=== PATIENT | female | born 1990 | race Caucasian/White ===

== ENCOUNTER 2017-08-28 01:38 | Observation (INO) ==
[2017-08-28] MEDS ORDERED: *HR* HYDROmorphone (PF) 1 MG/ML SYRINGE IVP ONE ×2 (01:47→02:19)
[2017-08-28] MEDS ORDERED: 0.9 % Sodium Chloride 1,000 ML IVC ONE ×2 (01:47→02:23)
[2017-08-28] MEDS ORDERED: Ondansetron 4 MG/2 ML VIAL IVP ONE (01:47)
--- NOTE | 2017-08-28 02:01 | Emergency Department Note ---
Disposition Clinical Impression: Intractable abdominal pain, Vomiting, Leukocytosis Disposition: Admitted As Inpatient Condition: Good Referrals: Lio Moss MD [Primary Care Provider] - Forms: ED Satisfaction Letter, Work/School Release Time of Disposition: 02:59 Abdominal Pain HPI - General Chief Complaint: ED Abdominal Pain Stated Complaint: was here yesterday vomiting abdominal pain Time Seen by Provider: 08/28/17 01:46 Source: patient Mode of arrival: ambulatory Limitations: no limitations Nursing Notes Reviewed: Yes Vital Signs Reviewed: Yes - History of Present Illness HPI Narrative: Patient presenting again to the emergency department with abdominal pain. This is the patient's second visit to the emergency department today. This patient was received in sign out at the beginning of my shift and was subsequently discharged after consultation with surgery. Patient is presenting again for worsening abdominal pain and vomiting. She states that she went home and tried to drink the GoLYTELY got about half of it down and tried to use the bathroom and then began vomiting all of the fluid back up. She is still not had a bowel movement and is complaining of worsening cramping in her stomach. Previous imaging was normal including a CT of abdomen and pelvis and transvaginal ultrasound. Patient reports that she is continuing to worse. There has been no fever or pain in her chest, trouble breathing or rash. We will admit to the hospitalist service after consultation surgery. Pain Scale: 10 - Related Data Home Medications Medication Instructions Recorded Confirmed Benzonatate [Tessalon] 100 mg PO TID PRN 08/27/17 08/27/17 Cyclobenzaprine [Flexeril] 10 mg PO TID PRN 08/27/17 08/27/17 Ibuprofen [Motrin] 800 mg PO Q8HR PRN 08/27/17 08/27/17 Naproxen [Naprosyn] 500 mg PO BID PRN 08/27/17 08/27/17 Ondansetron ODT [Zofran ODT] 4 mg SL Q6HR PRN 08/27/17 08/27/17 OxyCODONE Immed Rel [Roxicodone 5 5 mg PO Q8HR PRN 08/27/17 08/27/17 MG] Previous Rx's Medication Instructions Recorded levoFLOXacin [Levaquin] 500 mg PO DAILY #10 tablet 08/21/17 HYDROcodone/Acet 5/325 mg [[place] 1 tab PO Q6H PRN 4 Days #16 tab 08/23/17 5-325 mg] Ondansetron ODT [Zofran ODT] 4 mg SL Q8HR PRN #12 tab.rapdis 08/27/17 Polyethylene Glycol 3350 [MiraLAX] 17 gm PO DAILY PRN #5 powd.pack 08/27/17 Allergies Allergy/AdvReac Type Severity Reaction Status Date / Time No Known Allergies Allergy Verified 08/28/17 01:44 All systems ED: reviewed and negative except as stated. Constitutional: Denies: fever Cardiovascular: Denies: chest pain Gastrointestinal: Reports: abdominal pain, nausea, vomiting. 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 [employer]ER history: Reports: bilateral tubal ligation Psychiatric history: Reports: no psych history - Social History Smoking status: Current every day smoker Alcohol use: Reports: none Drug use: Reports: none Physical Exam - General Limitations: no limitations General appearance: alert, in distress - Respiratory Respiratory exam: Present: normal lung sounds bilaterally - Cardiovascular Cardiovascular exam: Present: regular rate, normal rhythm, normal heart sounds - Abdominal Exam Abdominal exam: Present: tenderness, distention, guarding, hypoactive bowel sounds - Extremities Exam Extremities exam: Present: normal inspection, full ROM. Absent: tenderness, pedal edema - Psychiatric Psychiatric exam: Present: anxious - Skin Skin exam: Present: warm, dry, intact, normal color Course Course Narrative: Patient presenting again shortly after discharge for worsening abdominal pain. Patient is tearful with a distended and tender abdomen. We will consult surgery. After labs are back. - Consultations Consultation #1: I spoke with Dr. Aranda. States nothing should be changed from a surgical perspective, but did recommend giving an enema and the GoLYTELY did not work. Okay with admission hospitalist service for surgical consult. Time: 02:58 Vital Signs Temperature 98.1 F 08/28/17 01:40 Pulse Rate 137 08/28/17 01:40 Respiratory Rate 20 08/28/17 01:40 Blood Pressure 142/103 08/28/17 01:40 O2 Sat by Pulse Oximetry 96 08/28/17 01:40 Temperature 98.1 F 08/28/17 01:40 Pulse Rate 70 08/28/17 02:46 Respiratory Rate 16 08/28/17 02:46 Blood Pressure 138/95 08/28/17 02:46 O2 Sat by Pulse Oximetry 99 08/28/17 02:46 Oxygen Delivery Oxygen Delivery Room Air Abdominal Pain - Lab Data Result diagrams: 08/28/17 02:00 08/28/17 02:00 Lab Results 08/28/17 08/28/17 08/28/17 Range/Units 02:00 02:00 02:00 WBC 19.2 H (4.3-11.1) K/mcL RBC 5.52 H (3.82-4.97) M/mcL Hgb 14.9 (11.5-15.4) g/dL Hct 45.6 H (35.3-44.9) % MCV 82.6 L (83.0-100.0) fL MCH 27.0 L (28.0-33.3) pg MCHC 32.7 (31.6-35.5) g/dL RDW 15.8 H (11.5-14.5) % Plt Count 240 (140-400) K/mcL MPV 10.0 (9.4-12.4) fL Immature Gran % 0.6 (0-4) % Seg Neutrophils % 78.9 % Lymphocytes % 13.3 % Monocytes % 6.9 % Eosinophils % 0.1 % Basophils % 0.2 % Neutrophils # 15.2 H (1.6-8.9) K/mcL Lymphocytes # 2.6 (0.6-4.6) K/mcL Monocytes # 1.3 (0.0-1.3) K/mcL Eosinophils # 0.0 (0.0-0.6) K/mcL Basophils # 0.0 (0.0-0.2) K/mcL Sodium 138 (136-145) mEq/L Potassium 3.9 (3.5-4.5) mEq/L Chloride 104 (98-109) mEq/L Carbon Dioxide 23 (19-29) mEq/L BUN 16 (7-20) mg/dL Creatinine 0.83 (0.57-1.11) mg/dL Est GFR ( Amer) > 60 (> 60) Est GFR (Non-Af Amer) > 60 (> 60) BUN/Creatinine Ratio 19 (6-26) Glucose 92 (70-99) mg/dL Calculated Osmolality 287 (280-300) Lactic Acid (0.5-2.2) mmol/L Calcium 9.1 (8.6-10.8) mg/dL TSH 2.122 (0.350-4.840) mcIU/mL Specimen Rejected Hemolyzed 08/28/17 Range/Units 02:23 WBC (4.3-11.1) K/mcL RBC (3.82-4.97) M/mcL Hgb (11.5-15.4) g/dL Hct (35.3-44.9) % MCV (83.0-100.0) fL MCH (28.0-33.3) pg MCHC (31.6-35.5) g/dL RDW (11.5-14.5) % Plt Count (140-400) K/mcL MPV (9.4-12.4) fL Immature Gran % (0-4) % Seg Neutrophils % % Lymphocytes % % Monocytes % % Eosinophils % % Basophils % % Neutrophils # (1.6-8.9) K/mcL Lymphocytes # (0.6-4.6) K/mcL Monocytes # (0.0-1.3) K/mcL Eosinophils # (0.0-0.6) K/mcL Basophils # (0.0-0.2) K/mcL Sodium (136-145) mEq/L Potassium (3.5-4.5) mEq/L Chloride (98-109) mEq/L Carbon Dioxide (19-29) mEq/L BUN (7-20) mg/dL Creatinine (0.57-1.11) mg/dL Est GFR ( Amer) (> 60) Est GFR (Non-Af Amer) (> 60) BUN/Creatinine Ratio (6-26) Glucose (70-99) mg/dL Calculated Osmolality (280-300) Lactic Acid 0.8 (0.5-2.2) mmol/L Calcium (8.6-10.8) mg/dL TSH (0.350-4.840) mcIU/mL Specimen Rejected S.B.A.R. - S.B.A.R. Situation: Demographics, MOA Background: Presenting Complaint, Relevant PMH, Meds, & Allergies Assessment: Vital Signs, Course and respsone to treatment, Exam Concerns, Patient/Family Expectation, Pertinant Lab Results, Outstanding Labs Recommendation: Barrier(s) to disposition, Recommendation based on pending studies, treatments, or consults Lucy Report Given to: Dr. Ashish Ayala Repor Time: 02:59
[2017-08-28 02:08] LABS: Basophils % 0.2 %; Eosinophils % 0.1 %; Hematocrit 45.6 % (35.3-44.9); Hemoglobin 14.9 g/dL (11.5-15.4); Immature Granulocytes % 0.6 % (0-4); Lymphocytes # 2.6 K/mcL (0.6-4.6); Lymphocytes % 13.3 %; Mean Corpuscular HGB Conc 32.7 g/dL (31.6-35.5); Mean Corpuscular Volume 82.6 fL (83.0-100.0); Monocytes # 1.3 K/mcL (0.0-1.3); Monocytes % 6.9 %; Platelet Count 240 K/mcL (140-400); Red Blood Count 5.52 M/mcL (3.82-4.97); Red Cell Distribution Width 15.8 % (11.5-14.5); Segmented Neutrophils % 78.9 %
[2017-08-28 02:09] LABS: Neutrophils # 15.2 K/mcL (1.6-8.9)
--- NOTE | 2017-08-28 02:27 | Emergency Department Note ---
START Narrative - START START: I examined this patient and my medical decision-making was reviewed with the Resident Physician. I agree with the documented findings, disposition and treatment plan as described except to the extent set forth below. 27-year-old female presents emergency room with abdominal pain. Patient was just in the emergency room earlier in the evening. She was seen in the ER by Gen. surgery for concerns for a surgical abdomen. Dr. Aranda came into the ER to evaluate the patient and did not feel the patient had any surgical issue. Her CT scan was normal. Her lab work was essentially unremarkable. She returns [facility] for return of her abdominal pain and vomiting. She threw up once at home. This is in regards to getting mag citrate for possible constipation. Patient will need to be admitted for serial abdominal exams and repeat consultation with general surgery. Her white count is now 19,000. Earlier this evening it was 12,000. She denies any diarrhea. She also had a pelvic ultrasound done earlier in the evening that was unremarkable.
[2017-08-28 02:28] LABS: BUN/Creatinine Ratio 19 (6-26); Blood Urea Nitrogen 16 mg/dL (7-20); Calcium 9.1 mg/dL (8.6-10.8); Carbon Dioxide 23 mEq/L (19-29); Chloride 104 mEq/L (98-109); Glucose 92 mg/dL (70-99); Osmolality,Calculated 287 (280-300); Potassium 3.9 mEq/L (3.5-4.5); Sodium 138 mEq/L (136-145); eGFR For African Americans > 60 (> 60); eGFR For Non-African Americans > 60 (> 60)
[2017-08-28 02:52] LABS: Thyroid Stimulating Hormone 2.122 mcIU/mL (0.350-4.840)
[2017-08-28] MEDS ORDERED: Milk and Molasses Enema 200 ML RC ONE ×2 (02:58→12:22)
[2017-08-28] MEDS ORDERED: Bisacodyl 10 MG RECTAL SUPPOSITORY RC STA (03:13)
[2017-08-28 03:37] LABS: Amphetamine Screen,Urine Negative ng/mL (Cutoff=1000); Barbiturate Screen,Urine Negative ng/mL (Cutoff=200); Benzodiazepines Screen,Urine Negative ng/mL (Cutoff=200); Cannabinoid Screen,Urine Negative ng/mL (Cutoff = 50); Cocaine Screen,Urine Negative ng/mL (Cutoff= 300); Opiate Screen,Urine Negative ng/mL (Cutoff=300); Phencyclidine Screen,Urine Negative ng/mL (Cutoff=25)
[2017-08-28] MEDS ORDERED: Naloxone 0.4 MG/ML INJ IVP PRN (05:15)
[2017-08-28] MEDS ORDERED: Ondansetron 4 MG/2 ML VIAL IVP PRN (05:15)
[2017-08-28] MEDS ORDERED: *HR* HYDROmorphone (PF) 1 MG/ML SYRINGE IVP PRN (05:15)
[2017-08-28] MEDS ORDERED: Acetaminophen 325 MG TABLET PO PRN (05:15)
--- NOTE | 2017-08-28 05:27 | Internal Med History&Physical ---
Date of Encounter: 08/28/17 Time of Encounter: 05:00 Assessment and Plan (1) DVT prophylaxis Current visit: Yes Status: Acute Heparin subcutaneously (2) Intractable abdominal pain Current visit: Yes Status: Acute Etiology is undetermined. However, pain is related to eating and with abdominal distention. Patient has a history of abdominal surgery include C- section 3, tubal ligation, and laparoscopic ovarian cystectomy. Suspect partial small bowel obstruction but have no imaging evidence. - We will place patient on nothing by mouth, IV fluid, pain medication. - Surgical consult in a.m. - Closely monitor patient as the etiology is undetermined. (3) Leukocytosis Current visit: Yes Status: Acute Patient has no fever. No infectious site identified. Probably reactive. Follow up CBC. Qualifiers: Leukocytosis type: leukemoid reaction Qualified Code(s): D72.823 - Leukemoid reaction Internal Medicine - H&P: HPI Chief complaint: Abdominal pain Admitted From: Home Plans for Post Hospital Care: Home History of present illness: Ms. Rushing is a 27 year old female without significant medical history present to ER for abdominal pain. Patient said the pain started since Thursday evening. At the beginning on left upper side, but moved to whole belly laterly, with abdominal distention. Patient said that the pain is sharp, worsening after eating. Patient denies nausea, vomiting, or diarrhea. She has no fever. She has bowel movement and can pass gas. Patient has nausea and vomited once only after ER give her some medication for bowel movement. The vomiting is stomach content. Patient had abdominal CT and pelvis ultrasound in emergency room, result is unremarkable. Lipase negative. EKG normal. Surgical consult was called by ER, no specific treatment. Patient was discharged from ER but come back again due to continuous pain. Surgical consult was called again by ER, recommended admit patient and will see patient in a.m. Past Med Surg Social Fam HX - Past Medical History Medical history: asthma, GERD Psychiatric history: no psych history - Past Surgical History Surgical History: , other - Social History Smoking Status: Current every day smoker Packs per day: 1 Smokeless Tobacco Status: No Alcohol use: none Drug use: none - Family History Sister Hx Family Cancer: Yes (sarcoma) Internal Medicine - H&P: Meds Ranitidine HCl [Acid Industrial Aerial Installer] 75 mg PO DAILY 10/20/17 [History] 3 Allergy/AdvReac Type Severity Reaction Status Date / Time No Known Allergies Allergy Verified 08/28/17 01:44 All Systems PM: A 10-system review of systems was performed and is negative for pertinent findings except as documented above in the HPI. - Constitutional Vitals: Temp Pulse Resp BP Pulse Ox 97.7 F 71 14 127/86 100 08/28/17 04:02 08/28/17 04:02 08/28/17 04:02 08/28/17 04:02 08/28/17 04:02 General appearance: Present: mild distress, A&O X 3, answers questions appropriately - Head Head exam: Present: atraumatic, normocephalic - Eye Eye exam: Present: PERRL, conjuntiva pink, sclera anicteric Pupils: Present: PERRL - Neck Neck exam general surgery: Present: supple, trachea midline. Absent: lymphadenopathy - Respiratory Respiratory exam: Present: CTAB. Absent: accessory muscle use, rales, rhonchi, wheezes - Cardiovascular Cardiovascular exam: Present: RRR, +S1, +S2. Absent: diastolic murmur, gallop, rubs, systolic murmur - GI/Abdominal GI/Abdominal exam: Present: normal bowel sounds, soft, tenderness (Abdominal tenderness in 4Q, but mainly on LUQ), no peritoneal signs. Absent: distended - Extremities Exam Extremities exam: Present: warm, radial pulses palpable and symmetrical. Absent : calf tenderness, cyanotic, pedal edema - Neurological Exam Neurological exam: Present: CN II-XII intact, oriented X3, no focal deficits. Absent: pronater drift, facial droop, speech deficit - Skin Skin exam: Present: dry, intact Internal Med - H&P Results - Labs CBC & Chem 7: 08/28/17 02:00 08/28/17 02:00
[2017-08-28] MEDS: 0.9 % Sodium Chloride 1,000 ML IVC SCH ×2 (05:46→15:53)
[2017-08-28] MEDS ORDERED: Pantoprazole 40 MG VIAL IVP SCH (06:30)
--- NOTE | 2017-08-28 08:28 | General Surgery Consult Note ---
Date of Encounter: 08/28/17 Time of Encounter: 08:00 History of Present Illness Consult date: 08/28/17 Requesting physician: Gildardo Oliveira History of present illness: Mrs. Rushing is a 27 year old female with a past medical history significant for GERD, obesity and tobacco abuse. She presents to the ED yesterday with a 4 day history of abdominal pain. She states that the pain started suddenly on Thursday of this week. She reports that the pain is located along her left side and into her pelvis. She describes the pain as a dull pain which is constant. The pain is intensified and feels like a sharp and stabbing pain when she coughs, moves or vomits. Past Med Surg Social Fam HX - Past Medical History Medical history: asthma, GERD Psychiatric history: no psych history - Past Surgical History Surgical History: , other - Social History Smoking Status: Current every day smoker Packs per day: 1 Smokeless Tobacco Status: No Alcohol use: none Drug use: none - Family History Sister Hx Family Cancer: Yes (sarcoma) Medications and Allergies Ranitidine HCl [Acid Customer Care Representative] 75 mg PO DAILY 08/28/17 [History] 3 Allergy/AdvReac Type Severity Reaction Status Date / Time No Known Allergies Allergy Verified 08/28/17 01:44 Review of Systems All systems PM: A 10-system review of systems was performed and is negative for pertinent findings except as documented above in the HPI. General Surgery Exam Initial Vital Signs Temp Pulse Resp BP Pulse Ox 98.1 F 137 20 142/103 96 08/28/17 01:40 08/28/17 01:40 08/28/17 01:40 08/28/17 01:40 08/28/17 01:40 Exam Initial Vital Signs Temp Pulse Resp BP Pulse Ox 98.1 F 137 20 142/103 96 08/28/17 01:40 08/28/17 01:40 08/28/17 01:40 08/28/17 01:40 08/28/17 01:40 Results - Labs 08/28/17 02:00 08/28/17 02:00 Abnormal lab results WBC 19.2 K/mcL (4.3-11.1) H 08/28/17 02:00 RBC 5.52 M/mcL (3.82-4.97) H 08/28/17 02:00 Hct 45.6 % (35.3-44.9) H 08/28/17 02:00 MCV 82.6 fL (83.0-100.0) L 08/28/17 02:00 MCH 27.0 pg (28.0-33.3) L 08/28/17 02:00 RDW 15.8 % (11.5-14.5) H 08/28/17 02:00 Neutrophils # 15.2 K/mcL (1.6-8.9) H 08/28/17 02:00 All other labs normal. Consult Discharge Plan - Plan Referrals: Lio Moss MD [Primary Care Provider] -
[2017-08-28] MEDS ORDERED: Nicotine 21 MG PATCH.TD24 TD SCH (09:00)
--- NOTE | 2017-08-28 10:56 | General Surgery Consult Note ---
<Jolynn Diez - Last Filed: 08/28/17 12:21> Date of Encounter: 08/28/17 Time of Encounter: 08:00 Assessment and Plan (1) Abdominal pain Current Visit: No Status: Acute Clear liquids Mg Citrate now Milk and Molasses enema No surgical intervention indicated No signs of bowel obstruction Surgery will follow along to ensure that pain resolves with treatment of constipation Qualifiers: Abdominal location: left lower quadrant Qualified Code(s): R10.32 - Left lower quadrant pain (2) Leukocytosis Current Visit: Yes Status: Acute Likely reactive secondary to pain and stress Qualifiers: Leukocytosis type: leukemoid reaction Qualified Code(s): D72.823 - Leukemoid reaction (3) Constipation Current Visit: Yes Status: Chronic Clear liquids Mg Citrate now Milk and Molasses enema No surgical intervention indicated No signs of bowel obstruction Surgery will follow along to ensure that pain resolves with treatment of constipation Qualifiers: Constipation type: unspecified constipation type Qualified Code(s): K59.00 - Constipation, unspecified History of Present Illness Consult date: 08/28/17 Reason for consult: abdominal pain Requesting physician: Gildardo Oliveira History of present illness: Mrs. Rushing is a 27 year old female with a past medical history significant for GERD, obesity and tobacco abuse. She presents to the ED yesterday with a 4 day history of abdominal pain. She states that the pain started suddenly on Thursday of this week. She reports that the pain is located along her left side and into her pelvis. She describes the pain as a dull pain which is constant. The pain is intensified and feels like a sharp and stabbing pain when she coughs, moves or vomits. The pain is intensified with eating. She admits to significant bloating over the past 4 days. She states that there has been progression of the pain over the past 4 days. She admits to nausea and vomiting yesterday. Denies any hematemesis of coffee ground emesis. She states that she typically has a bowel movement every 3 days and her last bowel movement was yesterday ( small amount). She is passing flatus regularly. Admits to 10 pound unexplained weight gain. States that she has no appetite and has not been eating for the past several days. Denies any difficulty with urination. Denies any shortness of breath of chest pains. Denies any fever or chills. She admits to having significant episodes of diaphoresis since the start of her pain. She does admit to heartburn and states that she takes Zantac 2 times daily for control of her symptoms. She states that she has had EGDs in the past for a history of GERD and esophageal abnormality. Her last EGD was complete in March/April of this year at [facility]. The patient reports that the findings were normal. We have been asked to see and evaluate the patient for evaluation and treatment. Past Med Surg Social Fam HX - Past Medical History Source: patient Medical history: asthma, GERD, other (ovarian cyst, obesity) Psychiatric history: no psych history - Past Surgical History Surgical History: (X 3), other (tubal ligation; Laparoscopy and drainage of ovarian cyst (left)) - Social History Smoking Status: Current every day smoker Packs per day: 1 Smokeless Tobacco Status: No Alcohol use: none Drug use: none Current living situation: Home - Independent Activity Level: Independent ambulation - Family History Sister Living Status: Still Living Hx Family Cancer: Yes (Schmidt sarcoma) Father Living Status: Still Living Hx Family Medical Disorders: Yes (Thyroid disease) Mother Living Status: Still Living Medications and Allergies Ranitidine HCl [Acid Nurse Gynecology] 75 mg PO DAILY 08/28/17 [History] 3 Allergy/AdvReac Type Severity Reaction Status Date / Time No Known Allergies Allergy Verified 08/28/17 01:44 Review of Systems All systems PM: reviewed and no additional remarkable complaints except as stated (in the HPI) All systems PM: A 10-system review of systems was performed and is negative for pertinent findings except as documented above in the HPI. General Surgery Exam Initial Vital Signs Temp Pulse Resp BP Pulse Ox 98.1 F 137 20 142/103 96 08/28/17 01:40 08/28/17 01:40 08/28/17 01:40 08/28/17 01:40 08/28/17 01:40 - General physical appearance well developed, well nourished, moderate distress, moderate pain, obese - Eyes PERRL, normal ocular movement - ENT normal mucosa, atraumatic, normocephalic - Neck trachea midline - Respiratory normal respiratory effort, clear to auscultation - Cardiovascular Cardiovascular exam: Present: RRR - Abdomen Abdomen general surgery: Present: bowel sounds present, soft, distended, tender Abdominal Tenderness: Present: LUQ, LLQ, suprapubic - Integumentary Integumentary general surgery: Present: warm and dry - Neurologic Present: CN 2-12 grossly intact - Psychiatric Psychiatric general surgery: Present: appropriate, oriented to person, oriented to place, oriented to time, speech is normal, memory intact Exam Initial Vital Signs Temp Pulse Resp BP Pulse Ox 98.1 F 137 20 142/103 96 08/28/17 01:40 08/28/17 01:40 08/28/17 01:40 08/28/17 01:40 08/28/17 01:40 Results - Labs 08/28/17 02:00 08/28/17 02:00 Abnormal lab results WBC 19.2 K/mcL (4.3-11.1) H 08/28/17 02:00 RBC 5.52 M/mcL (3.82-4.97) H 08/28/17 02:00 Hct 45.6 % (35.3-44.9) H 08/28/17 02:00 MCV 82.6 fL (83.0-100.0) L 08/28/17 02:00 MCH 27.0 pg (28.0-33.3) L 08/28/17 02:00 RDW 15.8 % (11.5-14.5) H 08/28/17 02:00 Neutrophils # 15.2 K/mcL (1.6-8.9) H 08/28/17 02:00 All other labs normal. Consult Discharge Plan - Plan Referrals: Lio Moss MD [Primary Care Provider] - <Solo Aranda - Last Filed: 08/28/17 12:33> Date of Encounter: 08/28/17 Review of Systems All systems PM: A 10-system review of systems was performed and is negative for pertinent findings except as documented above in the HPI. General Surgery Exam Initial Vital Signs Temp Pulse Resp BP Pulse Ox 98.1 F 137 20 142/103 96 08/28/17 01:40 08/28/17 01:40 08/28/17 01:40 08/28/17 01:40 08/28/17 01:40 Exam Initial Vital Signs Temp Pulse Resp BP Pulse Ox 98.1 F 137 20 142/103 96 08/28/17 01:40 08/28/17 01:40 08/28/17 01:40 08/28/17 01:40 08/28/17 01:40 Results - Labs 08/28/17 02:00 08/28/17 02:00 Abnormal lab results WBC 19.2 K/mcL (4.3-11.1) H 08/28/17 02:00 RBC 5.52 M/mcL (3.82-4.97) H 08/28/17 02:00 Hct 45.6 % (35.3-44.9) H 08/28/17 02:00 MCV 82.6 fL (83.0-100.0) L 08/28/17 02:00 MCH 27.0 pg (28.0-33.3) L 08/28/17 02:00 RDW 15.8 % (11.5-14.5) H 08/28/17 02:00 Neutrophils # 15.2 K/mcL (1.6-8.9) H 08/28/17 02:00 All other labs normal. - Attending Attestation I have personally performed a face to face evaluation on this patient. I have reviewed and agree with the care plan. History and Exam by me shows: Personal review the assessment and evaluation with an is practitioner above. Patient states that currently she has less abdominal pain on the left side and is actually laying on her left side. She had a suppository and had multiple bowel movements and on examination her abdomen significant only softer than it was yesterday the emergency room/ultrasound department. She admits to no nausea. I do think the majority of her pain was likely due to obstipation or the colon being full of stool. I would recommend medical molasses enemas as well as magnesium citrate from above. My hope is that further evacuation of the stool will help decrease or resolve her pain symptoms. Discussed with the patient and she agrees with the above plan.
--- NOTE | 2017-08-28 13:11 | Event Note ---
Date of Encounter: 08/28/17 Time of Encounter: 09:05 Patient continues to have abdominal pain although it seems to be improving as she is had bowel movements since last night. Denies any nausea or vomiting at this time. She had similar episode of abdominal pain 1 year back and at that time she was told that she may have passed a kidney stone although CT scans done and did not reveal any kidney stones. Surgery has been consulted and we will follow their recommendations. Continue to treat for constipation. Continue IV hydration and pain control.
[2017-08-28] MEDS ORDERED: Ketorolac 30 MG/ML VIAL IVP PRN (13:12)
[2017-08-28 14:26] VITALS: BP 111/75
--- NOTE | 2017-08-28 17:26 | Discharge Summary ---
Date of Encounter: 08/28/17 Time of Encounter: 17:24 - Discharge Diagnosis (1) Intractable abdominal pain Priority: Primary Status: Resolved (2) Leukocytosis Priority: Secondary Status: Acute Qualifiers: Leukocytosis type: leukemoid reaction Qualified Code(s): D72.823 - Leukemoid reaction (3) Constipation Priority: Secondary Status: Resolved Qualifiers: Constipation type: other constipation type Qualified Code(s): K59.09 - Other constipation - Discharge Medications Prescriptions: Polyethylene Glycol 3350 [MiraLAX] 17 gm PO DAILY #30 powd.pack Home Medications: Polyethylene Glycol 3350 [MiraLAX] 17 gm PO DAILY #30 powd.pack 08/28/17 [Rx] Ranitidine HCl [Acid Saddle Stitching Machine Operator] 75 mg PO DAILY 08/28/17 [History] Allergies/Adverse Reactions: 3 Allergy/AdvReac Type Severity Reaction Status Date / Time No Known Allergies Allergy Verified 08/28/17 01:44 Date of admission: 08/28/17 03:20 Primary care physician: Lio Moss MD Consults: 08/28/17 02:56 Consult to Surgery [CONS] Stat Consulting Provider: Solo Aranda Reason for Consult: abd pain Time Notified: 02:57 Call Completed: Yes Discharging clinician: Suzie Warner Anticipated date of discharge: 08/28/17 - Patient Status Disposition: Home, Self-Care Condition: Good Functional capacity at discharge: independent ambulation Overall status at discharge: patient is progressing back to baseline - Discharge Instructions Follow Up With: Lio Moss MD [Primary Care Provider] - (in 1-2 weeks) Oscar Guzman MD [Partnered Physician] - (in 1-2 weeks for intermittent abd pain ? IBS-C) - Diet and Activity Activity: increase activity as tolerated Diet: advance to your usual diet Hospital course: Ms. Rushing is a 27 year old female patient with no significant past medical history presented to the ER with complaints of abdominal pain. She was initially seen in the ER and underwent abdominal pelvis CT scan which did not show any acute processes besides stool present in the colon. She was discharged home on GoLYTELY as she was suspected of having constipation. Overall, her symptoms do not improve at home and she ended up vomiting all of the GoLYTELY that she had drank. She continued to have persistent abdominal pain radiating the left lower quadrant and so she came back to the ER. Repeat CT scan of the abdomen and pelvis did not show any new findings. She was then placed under observation in the hospital and surgery was consulted. She was given intravenous narcotic medications this morning and she has also had bowel movements. Her pain has since significantly improved. She is tolerating oral diet and is stable to be discharged home. She was evaluated by surgery and was recommended any further interventions at this time. I suspect that she probably has IBS-C as she apparently has a bowel movement once every 3 days. This could be a cause of her intermittent abdominal pain. Had a similar episode last year which remained undiagnosed. I would recommend that she follow up with gastroenterology to further work this up with a colonoscopy to rule out any other causes of her abdominal pain. Patient did have leukocytosis but no signs of infection. This is most likely related due to stress and acute pain. - Time Spent with Patient Total time spent providing and/or coordinating discharge services: Less than 30 minutes (25 min) - Constitutional Vitals: Temp Pulse Resp BP Pulse Ox 97.8 F 87 16 111/75 99 08/28/17 14:00 08/28/17 14:00 08/28/17 14:00 08/28/17 14:00 08/28/17 14:00 General appearance: Present: A&O X 3, no acute distress, answers questions appropriately - Respiratory Respiratory exam: Present: CTAB. Absent: accessory muscle use, rales, rhonchi, wheezes - Cardiovascular Cardiovascular exam: Present: RRR, +S1, +S2. Absent: diastolic murmur, gallop, rubs, systolic murmur - GI/Abdominal GI/Abdominal exam: Present: normal bowel sounds, soft, no peritoneal signs. Absent: distended, tenderness - Extremities Exam Extremities exam: Present: warm, radial pulses palpable and symmetrical. Absent : calf tenderness, cyanotic, pedal edema
--- NOTE | 2017-08-28 18:40 | Electrocardiograph Report ---
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
== END 2017-08-28 19:10 | disposition home or self-care (01) ==
LOC: 3ANU 01:38 → EMEROO 01:38 → SUATTDRO 03:20 → 3ANU 03:38
PROVIDERS: ADMIT Internal Medicine; ATTEND Internal Medicine

== ENCOUNTER 2018-08-27 11:59 | Inpatient (IN) ==
--- NOTE | 2018-08-27 12:46 | Emergency Department Note ---
Disposition Clinical Impression: Pulmonary embolism Qualifiers: Pulmonary embolism type: other Chronicity: acute Acute cor pulmonale presence: without acute cor pulmonale Qualified Code(s): I26.99 - Other pulmonary embolism without acute cor pulmonale Disposition: Admitted As Inpatient Condition: Fair Time of Disposition: 15:19 General Adult HPI - General Chief complaint: ED Shortness of Breath/Dyspnea Stated complaint: JN, Surgery x2days ago Time Seen by Provider: 08/27/18 12:29 Source: patient Mode of arrival: ambulatory Limitations: no limitations Nursing Notes Reviewed: Yes Vital Signs Reviewed: Yes - History of Present Illness HPI Narrative: 28 year old woman with hx significant for prior DVT who presents to ED 2 days post op from [facility] complaining of SOB and R low back pain. She states she was coughing last evening and experienced sharp, stabbing, R low paraspinal back pain that is worse with normal inspiration in a pleuritic pattern. Has been taking more shallow breaths since 2/2 pain. The cough is productive with clear and brown sputum. She additionally has had dizziness and abdominal pain which she was given percocet she says does not relieve her pain. She denies chest pain, subjective fever/chills, N/V, dysuria, hematuria, hx of nephrolithiasis, or drainage/bleeding from laproscopic incision sites. Pt Subjective Complaint: sob Onset (ago): hour(s) Location: chest, back Radiation: back Pain Severity: moderate Pain Scale: 8 Quality: stabbing, sharp Consistency: Worsening Improves with: rest Worsens with: movement Associated symptoms: Reports: cough, shortness of breath - Related Data Home Medications Medication Instructions Recorded Confirmed RX: Omeprazole [PriLOSEC] 40 mg PO DAILY 08/25/18 08/27/18 Previous Rx's Medication Instructions Recorded RX: Ondansetron ODT [Zofran ODT] 4 mg SL Q4HR PRN #12 tab.rapdis 08/25/18 RX: OxyCODONE/APAP 5/325 [Percocet 1 each PO Q6H PRN 3 Days #12 tablet 08/25/18 5/325 MG] Allergies Allergy/AdvReac Type Severity Reaction Status Date / Time No Known Allergies Allergy Verified 08/27/18 12:23 All systems ED: reviewed and negative except as stated. Constitutional: Denies: fever, chills Cardiovascular: Denies: chest pain Respiratory: Reports: cough, dyspnea Gastrointestinal: Reports: abdominal pain. Denies: nausea, vomiting, diarrhea Genitourinary: Denies: dysuria, frequency Musculoskeletal: Reports: back pain Neurological: Reports: vertigo. Denies: headache, numbness, paresthesias Past Medical History - Past Medical History Medical history: Reports: non-contributory, asthma, GERD Surgical history: Reports: , orthopedic, other, other Psychiatric history: Reports: no psych history SOCIAL SCIENCES CHAIR history: Reports: no SOCIAL SCIENCES CHAIR history, bilateral tubal ligation - Social History Smoking Status: Current every day smoker Smokeless Tobacco Status: No Alcohol use: Reports: none Drug use: Reports: none Physical Exam - General Limitations: no limitations General appearance: alert, in no apparent distress, anxious - Head Head exam: atraumatic, normocephalic, normal inspection - Eye Eye exam: Present: normal appearance - Neck Neck exam: Present: normal inspection, trachea midline - Chest Chest inspection: Present: normal inspection, symmetric chest wall rise - Respiratory Respiratory exam: Present: normal lung sounds bilaterally - Cardiovascular Cardiovascular exam: Present: regular rate, normal rhythm, normal heart sounds, +S1, +S2 - Abdominal Exam Abdominal exam: Present: soft, tenderness. Absent: distention, guarding, rebound, rigidity Abdominal tenderness: Present: moderate - Back Exam Back exam: Present: normal inspection, paraspinal tenderness. Absent: CVA tenderness (R), vertebral tenderness - Neurological Exam Neurological exam: Present: alert - Psychiatric Psychiatric exam: Present: normal affect - Skin Skin exam: Present: warm, dry, normal color. Absent: intact (4 2.5cm abdominal incision sites without drainage, bleeding, erythema ) Course Course Narrative: POD 2 for cholecystectomy that coughed last night and experienced acute R low paraspinal tenderness and sob 2/2 taking shallow breaths cause normal breathing increases paraspinal/abdominal pain. Likely pain related but will get cxr and d dimer that will likely be elevated given her post op status. 1355: D dimer 1161 in setting of 2 days post op from [facility]. CXR without acute abnormality. Will get CTA for PE. 1500: CTA chest Small pulmonary embolism involving the right upper lobe, right middle lobe and right lower lobe. No evidence of pulmonary infarct or right heart strain. Will start heparin infusion now and admit to hospital. 1515: Spoke to Dr Bill who was ok with heparin and requested to be consulted. Spoke to hospitalist service who accepted admission. Vital Signs Temperature 98.3 F 08/27/18 12:00 Pulse Rate 90 08/27/18 12:00 Respiratory Rate 20 08/27/18 12:00 Blood Pressure 112/75 08/27/18 12:00 O2 Sat by Pulse Oximetry 98 08/27/18 12:00 Temperature 97.7 F 08/27/18 18:02 Pulse Rate 96 08/27/18 18:21 Respiratory Rate 22 08/27/18 18:21 Blood Pressure 138/99 08/27/18 18:21 O2 Sat by Pulse Oximetry 99 08/27/18 18:21 Oxygen Delivery Oxygen Delivery Room Air Medical Decision Making - Lab Data Result diagrams: 08/27/18 12:38 08/27/18 12:38 Lab Results 08/27/18 08/27/18 08/27/18 Range/Units 12:38 12:38 12:38 WBC 5.6 (4.3-11.1) K/mcL RBC 5.12 H (3.82-4.97) M/mcL Hgb 13.9 (11.5-15.4) g/dL Hct 42.2 (35.3-44.9) % MCV 82.4 L (83.0-100.0) fL MCH 27.1 L (28.0-33.3) pg MCHC 32.9 (31.6-35.5) g/dL RDW 13.6 (11.5-14.5) % Plt Count 182 (140-400) K/mcL MPV 11.1 (9.4-12.4) fL PT (9.4-12.1) Seconds INR D-Dimer 1161 H (0-500) ng/mLFEU Heparin Anti-Xa, Unfract (0.30-0.70) IU/mL Sodium (136-145) mEq/L Potassium (3.5-5.1) mEq/L Chloride (98-107) mEq/L Carbon Dioxide (23-29) mEq/L BUN (6-20) mg/dL Creatinine (0.60-1.20) mg/dL Est GFR ( Amer) (> 60) Est GFR (Non-Af Amer) (> 60) BUN/Creatinine Ratio (6-26) Glucose (70-105) mg/dL Calculated Osmolality (280-300) Calcium (8.6-10.3) mg/dL Phosphorus 2.2 L (2.7-4.5) mg/dL Magnesium 2.0 (1.6-2.6) mg/dL 08/27/18 08/27/18 Range/Units 12:38 15:07 WBC (4.3-11.1) K/mcL RBC (3.82-4.97) M/mcL Hgb (11.5-15.4) g/dL Hct (35.3-44.9) % MCV (83.0-100.0) fL MCH (28.0-33.3) pg MCHC (31.6-35.5) g/dL RDW (11.5-14.5) % Plt Count (140-400) K/mcL MPV (9.4-12.4) fL PT 10.9 (9.4-12.1) Seconds INR 1.0 D-Dimer (0-500) ng/mLFEU Heparin Anti-Xa, Unfract 0.01 L (0.30-0.70) IU/mL Sodium 140 (136-145) mEq/L Potassium 3.6 (3.5-5.1) mEq/L Chloride 106 (98-107) mEq/L Carbon Dioxide 27 (23-29) mEq/L BUN 7 (6-20) mg/dL Creatinine 0.75 (0.60-1.20) mg/dL Est GFR ( Amer) > 60 (> 60) Est GFR (Non-Af Amer) > 60 (> 60) BUN/Creatinine Ratio 9 (6-26) Glucose 87 (70-105) mg/dL Calculated Osmolality 287 (280-300) Calcium 9.0 (8.6-10.3) mg/dL Phosphorus (2.7-4.5) mg/dL Magnesium (1.6-2.6) mg/dL
--- NOTE | 2018-08-27 13:46 | Emergency Department Note ---
Disposition Clinical Impression: Pulmonary embolism Qualifiers: Pulmonary embolism type: other Chronicity: acute Acute cor pulmonale presence: without acute cor pulmonale Qualified Code(s): I26.99 - Other pulmonary embolism without acute cor pulmonale Disposition: Admitted As Inpatient Condition: Fair General Adult HPI - General Chief complaint: ED Shortness of Breath/Dyspnea Stated complaint: JN, Surgery x2days ago Time Seen by Provider: 08/27/18 12:29 Source: patient Mode of arrival: ambulatory Limitations: no limitations - History of Present Illness Location: chest, back Pain Scale: 8 Quality: stabbing, sharp Improves with: rest Worsens with: movement Associated symptoms: Reports: cough, shortness of breath - Related Data Home Medications Medication Instructions Recorded Confirmed Omeprazole [PriLOSEC] 40 mg PO DAILY 08/25/18 08/27/18 Previous Rx's Medication Instructions Recorded Ondansetron ODT [Zofran ODT] 4 mg SL Q4HR PRN #12 tab.rapdis 08/25/18 OxyCODONE/APAP 5/325 [Percocet 1 each PO Q6H PRN 3 Days #12 tablet 08/25/18 5/325 MG] Allergies Allergy/AdvReac Type Severity Reaction Status Date / Time No Known Allergies Allergy Verified 08/27/18 12:23 Constitutional: Denies: fever, chills Cardiovascular: Denies: chest pain Respiratory: Reports: cough, dyspnea Gastrointestinal: Reports: abdominal pain. Denies: nausea, vomiting, diarrhea Genitourinary: Denies: dysuria, frequency Musculoskeletal: Reports: back pain Neurological: Reports: vertigo. Denies: headache, numbness, paresthesias Past Medical History - Past Medical History Medical history: Reports: non-contributory, asthma, GERD Surgical history: Reports: , orthopedic, other, other Psychiatric history: Reports: no psych history TOBACCO WAREHOUSE AGENT history: Reports: no TOBACCO WAREHOUSE AGENT history, bilateral tubal ligation - Social History Smoking Status: Current every day smoker Smokeless Tobacco Status: No Alcohol use: Reports: none Drug use: Reports: none Physical Exam - General Limitations: no limitations General appearance: alert, in no apparent distress, anxious Course Vital Signs Temperature 98.3 F 08/27/18 12:00 Pulse Rate 90 08/27/18 12:00 Respiratory Rate 20 08/27/18 12:00 Blood Pressure 112/75 08/27/18 12:00 O2 Sat by Pulse Oximetry 98 08/27/18 12:00 Temperature 98.3 F 08/27/18 16:52 Pulse Rate 63 08/27/18 16:52 Respiratory Rate 16 08/27/18 16:52 Blood Pressure 114/77 08/27/18 16:52 O2 Sat by Pulse Oximetry 98 08/27/18 16:52 Oxygen Delivery Oxygen Delivery Room Air Medical Decision Making - Lab Data Result diagrams: 08/27/18 12:38 08/27/18 12:38 Lab Results 08/27/18 08/27/18 08/27/18 Range/Units 12:38 12:38 12:38 WBC 5.6 (4.3-11.1) K/mcL RBC 5.12 H (3.82-4.97) M/mcL Hgb 13.9 (11.5-15.4) g/dL Hct 42.2 (35.3-44.9) % MCV 82.4 L (83.0-100.0) fL MCH 27.1 L (28.0-33.3) pg MCHC 32.9 (31.6-35.5) g/dL RDW 13.6 (11.5-14.5) % Plt Count 182 (140-400) K/mcL MPV 11.1 (9.4-12.4) fL PT (9.4-12.1) Seconds INR D-Dimer 1161 H (0-500) ng/mLFEU Heparin Anti-Xa, Unfract (0.30-0.70) IU/mL Sodium (136-145) mEq/L Potassium (3.5-5.1) mEq/L Chloride (98-107) mEq/L Carbon Dioxide (23-29) mEq/L BUN (6-20) mg/dL Creatinine (0.60-1.20) mg/dL Est GFR ( Amer) (> 60) Est GFR (Non-Af Amer) (> 60) BUN/Creatinine Ratio (6-26) Glucose (70-105) mg/dL Calculated Osmolality (280-300) Calcium (8.6-10.3) mg/dL Phosphorus 2.2 L (2.7-4.5) mg/dL Magnesium 2.0 (1.6-2.6) mg/dL 08/27/18 08/27/18 Range/Units 12:38 15:07 WBC (4.3-11.1) K/mcL RBC (3.82-4.97) M/mcL Hgb (11.5-15.4) g/dL Hct (35.3-44.9) % MCV (83.0-100.0) fL MCH (28.0-33.3) pg MCHC (31.6-35.5) g/dL RDW (11.5-14.5) % Plt Count (140-400) K/mcL MPV (9.4-12.4) fL PT 10.9 (9.4-12.1) Seconds INR 1.0 D-Dimer (0-500) ng/mLFEU Heparin Anti-Xa, Unfract 0.01 L (0.30-0.70) IU/mL Sodium 140 (136-145) mEq/L Potassium 3.6 (3.5-5.1) mEq/L Chloride 106 (98-107) mEq/L Carbon Dioxide 27 (23-29) mEq/L BUN 7 (6-20) mg/dL Creatinine 0.75 (0.60-1.20) mg/dL Est GFR ( Amer) > 60 (> 60) Est GFR (Non-Af Amer) > 60 (> 60) BUN/Creatinine Ratio 9 (6-26) Glucose 87 (70-105) mg/dL Calculated Osmolality 287 (280-300) Calcium 9.0 (8.6-10.3) mg/dL Phosphorus (2.7-4.5) mg/dL Magnesium (1.6-2.6) mg/dL Attestation Statement - Attestation Attestation: I examined this patient and my medical decision-making was reviewed with the INTERNAL RECRUITER/PA/Advanced Practice Nurse/Resident Physician. I agree with the documented findings, disposition and treatment plan as described except to the extent set forth below. I did see the patient is spoke with her and examined her and her back is normal in appearance but she does have some pain with palpation on the right CVA area and this is pleuritic pain also and is started last night and she did have a cholecystectomy 2 days ago. The surgical scars on the abdomen are clean and dry in appearance and non-infected. No purulence. She does have pleuritic pain and tells me she had a DVT in the past however she only took medicine for 4 days and was oral medicine while she was times guessing this was more likely a superficial thrombophlebitis but either way we will start with a d-dimer and this is negative and negative extremely unlikely she has a pulmonary embolism but of possible with the CT scan of the chest as she is postsurgical with pleuritic pain as well as shortness of breath. This could also certainly be related to the fact that her pain is in the area of her surgery which would be expected to hurt with motion as well as with breathing. Otherwise no hypoxemia or tachycardia or tachypnea 1345 I did review the patient's EKG showing normal sinus rhythm with a rate of 74 without acute ischemic change or evidence of arrhythmia [address] Nation who did perform her laparoscopic cholecystectomy 2 days ago and he is okay with her start a heparin and we will talk to the hospitalist. Dr. nation would like to be consulted and we will certainly do that. 1514
[2018-08-27] MEDS ORDERED: Isovue-370 500 ML INFUS..BTL IV ONE (13:53)
[2018-08-27] MEDS ORDERED: *HR* Heparin 5,000 UNIT/ML VIAL IVP ONE (14:57)
[2018-08-27] MEDS ORDERED: *HR* Heparin 5,000 UNIT/ML VIAL IVP PRN ×2 (14:57)
[2018-08-27] MEDS ORDERED: Heparin 25,000 UNIT/500 ML D5W 25,000 UNIT/500 ML BAG IVC SCH (15:00)
[2018-08-27 15:13] LABS: Hematocrit 42.2 % (35.3-44.9); Hemoglobin 13.9 g/dL (11.5-15.4); Mean Corpuscular HGB Conc 32.9 g/dL (31.6-35.5); Mean Corpuscular Hemoglobin 27.1 pg (28.0-33.3); Mean Corpuscular Volume 82.4 fL (83.0-100.0); Mean Platelet Volume 11.1 fL (9.4-12.4); Platelet Count 182 K/mcL (140-400); Red Blood Count 5.12 M/mcL (3.82-4.97); Red Cell Distribution Width 13.6 % (11.5-14.5)
[2018-08-27] MEDS ORDERED: Naloxone 0.4 MG/ML INJ IVP PRN (15:18)
[2018-08-27 15:36] LABS: Prothrombin Time 10.9 Seconds (9.4-12.1)
[2018-08-27 15:37] LABS: Heparin anti-factor XA UFH 0.01 IU/mL (0.30-0.70)
[2018-08-27 15:40] LABS: BUN/Creatinine Ratio 9 (6-26); Blood Urea Nitrogen 7 mg/dL (6-20); Carbon Dioxide 27 mEq/L (23-29); Chloride 106 mEq/L (98-107); Glucose 87 mg/dL (70-105); Osmolality,Calculated 287 (280-300); Phosphorous 2.2 mg/dL (2.7-4.5); Potassium 3.6 mEq/L (3.5-5.1); Sodium 140 mEq/L (136-145); eGFR For Non-African Americans > 60 (> 60)
--- NOTE | 2018-08-27 15:45 | Internal Med History&Physical ---
Date of Encounter: 08/27/18 Time of Encounter: 15:45 Internal Medicine - H&P: HPI Chief complaint: shortness of breath. and chest pain. Admitted From: Home Plans for Post Hospital Care: Home History of present illness: Ms. Rushing is a 28 year old female PMH significant for ACL repaired in 2012, Laparoscopic cholecystectomy this past Thursday. Patient presented to the ED complaining of shortness of breath with minimal exertion associated with chest and back pain which started last night. Patient reports that following the surgery she has been active, and continued to do her house chores. Denies recent of past trauma to her lower extremities. Denies seeing blood in her urine or stool, but reports that she is in the 5 day of her menstrual period. Denies fever/chills or flu like symptoms. Past Med Surg Social Fam HX - Past Medical History Medical history: non-contributory, asthma, GERD Additional medical history: PUD, HERNIA Psychiatric history: no psych history - Past Surgical History Surgical History: , orthopedic, other, other Additional surgical history: egd - Social History Smoking Status: Current every day smoker Smokeless Tobacco Status: No Alcohol use: none Drug use: none - Family History Sister Living Status: Still Living Hx Family Cancer: Yes (Schmidt sarcoma) Father Living Status: Still Living Mother Living Status: Still Living Internal Medicine - H&P: Meds Omeprazole [PriLOSEC] 40 mg PO DAILY 08/25/18 [History] Ondansetron ODT [Zofran ODT] 4 mg SL Q4HR PRN #12 tab.rapdis 08/25/18 [Rx] OxyCODONE/APAP 5/325 [Percocet 5/325 MG] 1 each PO Q6H PRN 3 Days #12 tablet 08/25/18 [Rx] Allergy/AdvReac Type Severity Reaction Status Date / Time No Known Allergies Allergy Verified 08/27/18 12:23 All Systems PM: A 10-system review of systems was performed and is negative for pertinent findings except as documented above in the HPI. - Constitutional Constitutional: no chills, no fever(s), no falls, no weakness - EENT Eyes: no change in vision, no floaters - Cardiovascular Cardiovascular ROS IM: chest pain, dyspnea on exertion, no claudication, no irregular heart rhythm, no lightheadedness, no palpitations - Respiratory Respiratory: no cough, no wheezing, no snoring - Gastrointestinal Gastrointestinal: no abdominal pain, no constipation, no loose stools, no melena, no nausea, no vomiting - Genitourinary Genitourinary: no menorrhagia Menstruation: menses 1-7 days, period heavy - Musculoskeletal Musculoskeletal ROS IM: back pain, no limited range of motion - Integumentary Integumentary IM: no rash - Neurological Neurological ROS: no focal weakness, no headache(s) - Psychiatric Psychiatric: no anxiety - Endocrine Endocrine IM: no polydipsia, no polyphagia, no polyuria - Allergic/Immunologic Additional comments: rest of the review of system negative. - Constitutional Vitals: Temp Pulse Resp BP Pulse Ox 98.3 F 72 20 126/84 100 08/27/18 12:26 08/27/18 15:00 08/27/18 15:00 08/27/18 15:00 08/27/18 15:00 Exam: General: Alert and oriented x4. In moderate distress due to back pain. Skin: Normal color, no rash, no lesions. HEENT: EOM, pupils equal, round and reactive. Cardiovascular: RRR, Normal S1 & S2, no rubs, murmurs or gallops. Lungs: CTA b/l, no wheezes, rales or crackles. Abdomen: Soft, non-tender, no rigidity. NABS in all 4 quadrants Extremities: No deformity, no edema or tenderness, no joint swelling or clubbing. Neurological: Normal cognition and motor skills. Rest of the physical exam is non contributory Internal Med - H&P Results - Labs CBC & Chem 7: 08/27/18 12:38 08/27/18 12:38 Labs: Short CBC 08/27/18 Range/Units 12:38 WBC 5.6 (4.3-11.1) K/mcL Hgb 13.9 (11.5-15.4) g/dL Hct 42.2 (35.3-44.9) % Plt Count 182 (140-400) K/mcL BMP 08/27/18 12:38 Sodium 140 Potassium 3.6 Chloride 106 Carbon Dioxide 27 BUN 7 Creatinine 0.75 Glucose 87 Calcium 9.0 - Impressions ITS Impressions Chest X-Ray 08/27/18 13:12 IMPRESSION: 1. No active pulmonary disease. D/ / Jhonatan Khan MD / Jhonatan Khan MD Interpreting Provider: Jhonatan Khan MD Chest CTA 08/27/18 13:53 IMPRESSION: Small pulmonary embolism involving the right upper lobe, right middle lobe and right lower lobe. No evidence of pulmonary infarct or right heart strain. The results of the examination were discussed with Dr. Monique on 08/27/2018 at 2:50 p.m. D/ / 08/27/2018 14:53:02 Tl Schulte MD / alyson Interpreting Provider: Tl Schulte MD - Assessment and plan (1) Pulmonary embolism Current Visit: Yes Status: Acute Assessment and plan: CTA: IMPRESSION: Small pulmonary embolism involving the right upper lobe, right middle lobe and right lower lobe. No evidence of pulmonary infarct or right heart strain. Patient report SOB with minimal exertion associated back pain. Plan started on full dose anticoagulation with heparin drip Venous Dupplex of the lower extr b/l TTE incentive spirometry surgery consulted as patient had a Lap cholecystectomy about 2 days ago. O2 by nasal cannula, titrate for O2Sat >92%. Pain control with tramadol 50mg/PO Q6HR/PO Qualifiers: Pulmonary embolism type: other Chronicity: acute Acute cor pulmonale presence: without acute cor pulmonale Qualified Code(s): I26.99 - Other pulmonary embolism without acute cor pulmonale (2) Back pain Current Visit: Yes Status: Acute Assessment and plan: Back pain most likely due to PE. Patient started on PRN pain medication. Qualifiers: Chronicity: unspecified Back pain laterality: unspecified Sciatica laterality: sciatica laterality unspecified Qualified Code(s): M54.40 - Lumbago with sciatica, unspecified side (3) GERD (gastroesophageal reflux disease) Current Visit: Yes Status: Chronic Assessment and plan: continue Omeprazol 20mg/PO daily. Qualifiers: Esophagitis presence: esophagitis presence not specified Qualified Code(s): K21.9 - Gastro-esophageal reflux disease without esophagitis - Time Spent With Patient Total time spent is greater than 50% in coordination of care (as documented) at patient's floor/unit and/or counseling patient: 25 - 35 minutes
[2018-08-27] MEDS: traMADol 50 MG TABLET PO PRN ×2 (16:54→23:03)
[2018-08-27] MEDS ORDERED: *HR* HYDROcodone/Acet 5/325 mg TABLET PO STA (17:58)
[2018-08-27] MEDS ORDERED: *HR* HYDROcodone/Acet 5/325 mg TABLET PO PRN (18:02)
[2018-08-27] MEDS ORDERED: *HR* Promethazine 25 MG/ML VIAL IVP PRN (18:41)
[2018-08-28 05:32] LABS: Hematocrit 41.4 % (35.3-44.9); Hemoglobin 13.9 g/dL (11.5-15.4); Mean Corpuscular HGB Conc 33.6 g/dL (31.6-35.5); Mean Corpuscular Hemoglobin 27.1 pg (28.0-33.3); Mean Corpuscular Volume 80.7 fL (83.0-100.0); Mean Platelet Volume 10.6 fL (9.4-12.4); Platelet Count 195 K/mcL (140-400); Red Blood Count 5.13 M/mcL (3.82-4.97); Red Cell Distribution Width 13.3 % (11.5-14.5)
[2018-08-28] MEDS ORDERED: Acetaminophen 325 MG TABLET PO PRN (10:59)
[2018-08-28 11:04] VITALS: BP 104/72
--- NOTE | 2018-08-28 12:39 | Discharge Summary ---
- NOTES TO OUTPATIENT PROVIDER Notes to Outpatient Provider: Patient was hospitalized here for an acute pulmonary embolism involving the right upper, middle and lower lobes. She was started on IV heparin and her symptoms have significantly improved. She is clinically stable for discharge. She did have laparoscopic cholecystectomy 2 on 08/25 and so this is likely a provoked PE. She will need to be on anticoagulation for 3-6 months. She will be placed on Eliquis and can be followed up with her primary care physician. Orders not resulted at time of discharge: Pending orders 08/27/18 17:54 EKG [ECG 12 lead ECG] [ECG] Routine Date of Encounter: 08/28/18 Time of Encounter: 12:37 - Discharge Diagnosis (1) Pulmonary embolism Priority: Primary Status: Acute Assessment and Plan: Right-sided pulmonary embolism. Qualifiers: Pulmonary embolism type: other Chronicity: acute Acute cor pulmonale presence: without acute cor pulmonale Qualified Code(s): I26.99 - Other pulmonary embolism without acute cor pulmonale (2) Back pain Priority: Secondary Status: Acute Qualifiers: Chronicity: unspecified Back pain laterality: unspecified Sciatica laterality: sciatica laterality unspecified Qualified Code(s): M54.40 - Lumbago with sciatica, unspecified side (3) GERD (gastroesophageal reflux disease) Priority: Secondary Status: Chronic Qualifiers: Esophagitis presence: esophagitis presence not specified Qualified Code(s): K21.9 - Gastro-esophageal reflux disease without esophagitis Hospital course: Ms. Rushing is a 28 year old female Patient with history of gastroesophageal reflux disease, who was hospitalized here for an acute pulmonary embolism involving the right upper, middle and lower lobes. She was started on IV heparin and her symptoms have significantly improved. She is clinically stable for discharge. She did have laparoscopic cholecystectomy 2 on 08/25 and so this is likely a provoked PE. She will need to be on anticoagulation for 3-6 months. She will be placed on Eliquis and can be followed up with her primary care physician. 2-D echocardiogram did not show any right ventricular strain. Discharge discussed with: patient, nurse, medical cost consultant - Time Spent with Patient Total time spent providing and/or coordinating discharge services: Less than 30 minutes (25 min) - Discharge Medications Prescriptions: Apixaban [Eliquis] 10 mg PO BID #60 tablet Home Medications: Omeprazole [PriLOSEC] 40 mg PO DAILY 08/25/18 [History] Ondansetron ODT [Zofran ODT] 4 mg SL Q4HR PRN #12 tab.rapdis 08/25/18 [Rx] OxyCODONE/APAP 5/325 [Percocet 5/325 MG] 1 each PO Q6H PRN 3 Days #12 tablet 08/25/18 [Rx] Apixaban [Eliquis] 10 mg PO BID #60 tablet 08/28/18 [Rx] Allergies/Adverse Reactions: Allergy/AdvReac Type Severity Reaction Status Date / Time No Known Allergies Allergy Verified 08/27/18 12:23 Date of admission: 08/27/18 16:14 Primary care physician: Lio Moss MD Consults: 08/27/18 15:14 Consult to Surgery [CONS] Stat Consulting Provider: Surgery [facility] Reason for Consult: PE with heparin post surgery Call Completed: Yes Discharging clinician: Suzie Warner Anticipated date of discharge: 08/28/18 - Constitutional Vitals: Temp Pulse Resp BP Pulse Ox 97.6 F 75 16 104/72 98 08/28/18 11:03 08/28/18 11:03 08/28/18 11:03 08/28/18 11:03 08/28/18 11:03 General appearance: Present: cooperative, A&O X 3, answers questions appropriately Exam: . - Neck Neck exam general surgery: Present: supple, trachea midline. Absent: lymphadenopathy - Respiratory Respiratory exam: Present: CTAB. Absent: accessory muscle use, rales, rhonchi, wheezes - Cardiovascular Cardiovascular exam: Present: RRR, +S1, +S2. Absent: diastolic murmur, gallop, rubs, systolic murmur - Patient Status Disposition: Home, Self-Care Condition: Good Functional capacity at discharge: independent ambulation Overall status at discharge: patient is progressing back to baseline - Discharge Instructions Instructions: Pulmonary Embolism (DC) Follow Up With: Lio Moss MD [Primary Care Provider] - (in 1 week) - Diet and Activity Activity: increase activity as tolerated Diet: advance to your usual diet
[2018-08-28] MEDS ORDERED: Apixaban 5 MG TABLET PO SCH (12:45)
--- NOTE | 2018-08-28 14:09 | General Surgery Consult Note ---
Date of Encounter: 08/28/18 Time of Encounter: 13:53 History of Present Illness Consult date: 08/28/18 Reason for consult: other (chest pain, shortness of breath; PE) Requesting physician: Rommel Blount History of present illness: 28 yo, patient of Dr Moss, approx 3 days s/p laparoscopic cholecystectomy admitted after presenting to the emergency department with new onset chest pain and shortness of breath. The patient was determined to have a multiple PEs affecting both lungs. The patient was admitted for anticoagulation and further monitoring. I was consulted for postoperative follow-up. The procedure was completed without difficulty, 08/25/18. The patient recovered uneventfully and was discharged home the same day as surgery. The patient describes being active and feeling quite well until the a.m. 08/27/18. She is awakened with chest pain and difficulty breathing which apparently progressed through the course of the morning. She contacted my office and was instructed to present to the emergency room for further evaluation and treatment. Past medical history is notable for peptic ulcer disease/gastroesophageal reflux disease/ulcers; asthma, chronic anemia, IBS Surgical history: 3; ACL repair 2012; laparoscopic cholecystectomy 08/25/18 Allergies no known drug allergies Medications: The patient was on omeprazole 40 mg by mouth daily, and Faxitron 4 mg sublingually every 4 hours needed for nausea vomiting and oxycodone/acetaminophen 5/325 one every 6 hours as needed for pain not relieved by [id number] medications. The patient states that she did not require any narcotic analgesia following her gallbladder surgery Physical examination. Age-appropriate woman who appears to be in no acute distress. The patient has remained afebrile, hemodynamically stable since admission; currently - temperature 97.6, pulse 75, respirations 16, blood pressure 104/72 Skin warm, without obvious jaundice Lungs: Clear to auscultation with pain on deep inspiration particularly on the right Cardiac: Regular rate, no appreciable murmurs Abdomen: Soft with infraumbilical port site tenderness as expected. The preoperative symptoms prompting the cholecystectomy are resolved. The patient has experienced no postoperative fevers, chills, nausea, or vomiting. She has been tolerating a regular diet without symptomatology The port sites are intact and healing well. No obvious fascial defects/hernias were identified. Bowel sounds are active Impression: Postoperative chest pain, difficulty in breathing related to DVT with multiple bilateral PE 3 days status post laparoscopic cholecystectomy with attempted intraoperative cholangiogram for mild chronic cholecystitis/biliary dyskinesia Resolution of long-standing preoperative symptoms Plan: Apixaban 10 mg by mouth twice a day Continue surgical follow-up as needed. No surgical intervention required at this time. Referral to hematology pending for further evaluation of the recent hist ory of DVT/PE Medical follow-up with PCP, shortly after discharge from the hospital, is strongly recommended has been discussed in detail with the patient Past Med Surg Social Fam HX - Past Medical History Medical history: non-contributory, asthma, GERD Additional medical history: PUD, HERNIA Psychiatric history: no psych history - Past Surgical History Surgical History: , orthopedic, other, other Additional surgical history: egd - Social History Smoking Status: Current every day smoker Smokeless Tobacco Status: No Alcohol use: none Drug use: none - Family History Sister Living Status: Still Living Hx Family Cancer: Yes (Schmidt sarcoma) Father Living Status: Still Living Mother Living Status: Still Living Medications and Allergies Omeprazole [PriLOSEC] 40 mg PO DAILY 08/25/18 [History] Ondansetron ODT [Zofran ODT] 4 mg SL Q4HR PRN #12 tab.rapdis 08/25/18 [Rx] OxyCODONE/APAP 5/325 [Percocet 5/325 MG] 1 each PO Q6H PRN 3 Days #12 tablet 08/25/18 [Rx] Apixaban [Eliquis] 10 mg PO BID #60 tablet 08/28/18 [Rx] Allergy/AdvReac Type Severity Reaction Status Date / Time No Known Allergies Allergy Verified 08/27/18 12:23 Review of Systems All systems PM: The remainder of the systems were reviewed and are negative General Surgery Exam Initial Vital Signs Temp Pulse Resp BP Pulse Ox 98.3 F 90 20 112/75 98 08/27/18 12:00 08/27/18 12:00 08/27/18 12:00 08/27/18 12:00 08/27/18 12:00 Exam Initial Vital Signs Temp Pulse Resp BP Pulse Ox 98.3 F 90 20 112/75 98 08/27/18 12:00 08/27/18 12:00 08/27/18 12:00 08/27/18 12:00 08/27/18 12:00 Results - Labs 08/28/18 05:15 08/27/18 12:38 Abnormal lab results RBC 5.13 M/mcL (3.82-4.97) H 08/28/18 05:15 MCV 80.7 fL (83.0-100.0) L 08/28/18 05:15 MCH 27.1 pg (28.0-33.3) L 08/28/18 05:15 D-Dimer 1161 ng/mLFEU (0-500) H 08/27/18 12:38 Phosphorus 2.2 mg/dL (2.7-4.5) L 08/27/18 12:38 Diabetes panel 08/27/18 Range/Units 12:38 Sodium 140 (136-145) mEq/L Potassium 3.6 (3.5-5.1) mEq/L Chloride 106 (98-107) mEq/L Carbon Dioxide 27 (23-29) mEq/L BUN 7 (6-20) mg/dL Creatinine 0.75 (0.60-1.20) mg/dL Glucose 87 (70-105) mg/dL Calcium 9.0 (8.6-10.3) mg/dL Calcium panel 08/27/18 08/27/18 Range/Units 12:38 12:38 Calcium 9.0 (8.6-10.3) mg/dL Phosphorus 2.2 L (2.7-4.5) mg/dL Pituitary panel 08/27/18 Range/Units 12:38 Sodium 140 (136-145) mEq/L Potassium 3.6 (3.5-5.1) mEq/L Chloride 106 (98-107) mEq/L Carbon Dioxide 27 (23-29) mEq/L BUN 7 (6-20) mg/dL Creatinine 0.75 (0.60-1.20) mg/dL Glucose 87 (70-105) mg/dL Calcium 9.0 (8.6-10.3) mg/dL Adrenal panel 08/27/18 Range/Units 12:38 Sodium 140 (136-145) mEq/L Potassium 3.6 (3.5-5.1) mEq/L Chloride 106 (98-107) mEq/L Carbon Dioxide 27 (23-29) mEq/L BUN 7 (6-20) mg/dL Creatinine 0.75 (0.60-1.20) mg/dL Glucose 87 (70-105) mg/dL Calcium 9.0 (8.6-10.3) mg/dL All other labs normal. Consult Discharge Plan - Plan Instructions: Pulmonary Embolism (DC) Referrals: Lio Moss MD [Primary Care Provider] - (Please call and schedule a hospital follow up for 1 week) Prescriptions: Apixaban [Eliquis] 10 mg PO BID #60 tablet
--- NOTE | 2018-08-28 19:09 | Electrocardiograph Report ---
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
--- NOTE | 2018-08-31 17:07 | Electrocardiograph Report ---
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
== END 2018-08-28 14:27 | disposition home or self-care (01) | DRG 134 ==
LOC: 2ANU 11:59 → EMEROOARM 11:59 → SUATTDRO 16:14 → 2ANU 16:21
PROVIDERS: ADMIT Internal Medicine; ATTEND Internal Medicine

== ENCOUNTER 2019-12-14 10:44 | Observation (INO) ==
[2019-12-14] MEDS ORDERED: 0.9 % Sodium Chloride 1,000 ML IVC ONE (11:13)
[2019-12-14] MEDS ORDERED: Ondansetron 4 MG/2 ML VIAL IVP ONE (11:13)
[2019-12-14] MEDS ORDERED: Isovue-370 500 ML BOTTLE IVP ONE ×2 (11:14→17:42)
[2019-12-14] MEDS ORDERED: *HR* HYDROmorphone (PF) 1 MG/ML SYRINGE IVP ONE ×2 (11:14→13:14)
[2019-12-14 11:36] LABS: Bilirubin,Urine Negative (Negative); Blood,Urine Negative (Negative); Clarity,Urine Clear (Clear); Color,Urine Yellow (Yellow); Glucose,Urine (UA) Normal (Normal); Ketones,Urine Negative (Negative); Leukocyte Esterase,Urine Negative (Negative); Nitrite,Urine Negative (Negative); Protein,Urine 30 mg/dL (Neg-Trace); Specific Gravity,Urine 1.025 (1.010-1.025); Urobilinogen,Urine Normal (Normal)
[2019-12-14 11:56] LABS: Basophils # 0.1 K/mcL (0.0-0.2); Basophils % 0.6 %; Eosinophils # 0.1 K/mcL (0.0-0.6); Eosinophils % 1.4 %; Hematocrit 47.8 % (35.3-44.9); Hemoglobin 16.3 g/dL (11.5-15.4); Immature Granulocytes % 0.2 % (0-4); Lymphocytes % 23.8 %; Mean Corpuscular HGB Conc 34.1 g/dL (31.6-35.5); Mean Corpuscular Hemoglobin 28.7 pg (28.0-33.3); Mean Corpuscular Volume 84.2 fL (83.0-100.0); Mean Platelet Volume 10.6 fL (9.4-12.4); Monocytes # 0.5 K/mcL (0.0-1.3); Monocytes % 5.5 %; Neutrophils # 5.7 K/mcL (1.6-8.9); Platelet Count 260 K/mcL (140-400); Red Blood Count 5.68 M/mcL (3.82-4.97); Red Cell Distribution Width 13.2 % (11.5-14.5); Segmented Neutrophils % 68.5 %; White Blood Count 8.4 K/mcL (4.3-11.1)
[2019-12-14 11:59] LABS: BUN/Creatinine Ratio 16 (6-26); Blood Urea Nitrogen 11 mg/dL (6-20); Calcium 9.7 mg/dL (8.6-10.3); Carbon Dioxide 22 mEq/L (23-29); Chloride 108 mEq/L (98-107); Glucose 96 mg/dL (70-105); Osmolality,Calculated 285 (280-300); Sodium 138 mEq/L (136-145); eGFR For African Americans > 60 (> 60); eGFR For Non-African Americans > 60 (> 60)
[2019-12-14 12:04] LABS: Mucus,Urine Moderate per lpf (Few)
[2019-12-14 12:05] LABS: Bacteria,Urine Few per hpf (None-Few); Squamous Epithelial Cell,Urine Many per lpf (None-Few); Transitional Epi Cells,Urine Few per hpf (None-Few); WBC,Urine 0-3 per hpf (0-3)
[2019-12-14] MEDS ORDERED: Ketorolac 15 MG/ML VIAL IVP ONE (13:11)
[2019-12-14] MEDS ORDERED: Dicyclomine 20 MG/2 ML AMPUL IM STA (13:31)
[2019-12-14] MEDS ORDERED: MetroNIDAZOLE 500 MG/100 ML 500 MG/100 ML BAG IVPB ONE (13:41)
[2019-12-14] MEDS ORDERED: Ketorolac 30 MG/ML VIAL IVP PRN (15:34)
[2019-12-14] MEDS ORDERED: *HR* Promethazine 25 MG/ML VIAL IVP PRN (15:34)
[2019-12-14] MEDS ORDERED: Naloxone 0.4 MG/ML INJ IVP PRN (15:34)
[2019-12-14] MEDS ORDERED: Ondansetron 4 MG/2 ML VIAL IVP PRN (15:58)
[2019-12-14 16:06] LABS: C-Reactive Protein < 5 mg/L (Less than 10)
[2019-12-14] MEDS: Ringers Solution, Lactated 1,000 ML IVC SCH (16:55)
[2019-12-14] MEDS: Pantoprazole 40 MG VIAL IVP SCH (17:05)
[2019-12-14] MEDS: MetroNIDAZOLE 500 MG/100 ML 500 MG/100 ML BAG IVPB SCH (22:37)
[2019-12-15] MEDS: Ringers Solution, Lactated 1,000 ML IVC SCH (01:23)
[2019-12-15 04:53] LABS: Hematocrit 40.2 % (35.3-44.9); Mean Corpuscular HGB Conc 32.8 g/dL (31.6-35.5); Mean Corpuscular Hemoglobin 28.5 pg (28.0-33.3); Mean Corpuscular Volume 86.8 fL (83.0-100.0); Mean Platelet Volume 10.4 fL (9.4-12.4); Platelet Count 199 K/mcL (140-400); Red Blood Count 4.63 M/mcL (3.82-4.97); Red Cell Distribution Width 13.2 % (11.5-14.5); White Blood Count 5.9 K/mcL (4.3-11.1)
[2019-12-15 05:04] LABS: Hemoglobin 13.2 g/dL (11.5-15.4)
[2019-12-15 05:13] LABS: BUN/Creatinine Ratio 9 (6-26); Blood Urea Nitrogen 6 mg/dL (6-20); Calcium 8.6 mg/dL (8.6-10.3); Carbon Dioxide 27 mEq/L (23-29); Chloride 106 mEq/L (98-107); Glucose 92 mg/dL (70-105); Osmolality,Calculated 291 (280-300); Potassium 3.7 mEq/L (3.5-5.1); Sodium 142 mEq/L (136-145); eGFR For African Americans > 60 (> 60); eGFR For Non-African Americans > 60 (> 60)
[2019-12-15] MEDS ORDERED: Venlafaxine XR (24 HR) 75 MG CAP.ER.24H PO SCH (09:00)
[2019-12-15] MEDS: Pantoprazole 40 MG VIAL IVP SCH (09:00)
[2019-12-15] MEDS: MetroNIDAZOLE 500 MG/100 ML 500 MG/100 ML BAG IVPB SCH (09:52)
[2019-12-15 13:03] VITALS: BP 116/69
[2019-12-15] MEDS ORDERED: *HR* Succinylcholine 200 MG/10 ML VIAL IVP ONE (13:39)
[2019-12-15] MEDS ORDERED: Lidocaine -MPF 2% 2 ML VIAL ONE (13:39)
[2019-12-15] MEDS ORDERED: Propofol 500 MG/50 ML INFUS..BTL ONE (13:39)
== END 2019-12-15 16:39 | disposition home or self-care (01) ==
LOC: 3BNU 10:44 → EMEROOARM 10:44 → SUATTDRO 14:26 → 3BNU 15:20
PROVIDERS: ADMIT Internal Medicine; ATTEND Internal Medicine
PROC: ENDOCBX (2019-12-15 14:15)

== ENCOUNTER 2021-03-06 08:04 | Observation (INO) ==
[2021-03-06] MEDS ORDERED: Isovue-370 500 ML BOTTLE IVP ONE (08:18)
[2021-03-06 08:28] LABS: Hematocrit 46.3 % (35.3-44.9); Hemoglobin 14.9 g/dL (11.5-15.4); Mean Corpuscular HGB Conc 32.2 g/dL (31.6-35.5); Mean Corpuscular Hemoglobin 27.2 pg (28.0-33.3); Mean Corpuscular Volume 84.6 fL (83.0-100.0); Mean Platelet Volume 9.8 fL (9.4-12.4); Platelet Count 260 K/mcL (140-400); Red Blood Count 5.47 M/mcL (3.82-4.97); Red Cell Distribution Width 13.2 % (11.5-14.5); White Blood Count 7.8 K/mcL (4.3-11.1)
[2021-03-06 08:38] LABS: Prothrombin Time 11.8 Seconds (9.4-12.1)
[2021-03-06 08:41] LABS: Activated Partial Thrombo Time 30.8 Seconds (26.0-36.0)
[2021-03-06 08:47] LABS: BUN/Creatinine Ratio 18 (6-26); Blood Urea Nitrogen 15 mg/dL (6-20); Carbon Dioxide 27 mEq/L (23-29); Chloride 104 mEq/L (98-107); Glucose 98 mg/dL (70-105); Osmolality,Calculated 287 (280-300); Potassium 3.8 mEq/L (3.5-5.1); Sodium 138 mEq/L (136-145); Troponin I < 0.03 ng/mL (< 0.04); eGFR For African Americans > 60 (> 60); eGFR For Non-African Americans > 60 (> 60)
[2021-03-06] MEDS ORDERED: Aspirin 325 MG TABLET PO ONE (09:20)
[2021-03-06] MEDS ORDERED: Naloxone 0.4 MG/ML INJ IVP PRN (09:43)
[2021-03-06] MEDS ORDERED: Ondansetron 4 MG/2 ML VIAL IVP PRN (09:43)
[2021-03-06] MEDS ORDERED: Perflutren Lipid Microsphere 1.3 ML in 0.9 % Sodium Chloride 8.7 ML IVP PRN (09:47)
[2021-03-06] MEDS ORDERED: Acetaminophen/Aspirin/Caffeine TABLET PO PRN (09:49)
[2021-03-06] MEDS ORDERED: Gadolinium Contrast Agent (WT Based) IV PRN (09:49)
[2021-03-06 10:49] LABS: Bilirubin,Urine Negative (Negative); Blood,Urine Negative (Negative); Clarity,Urine Clear (Clear); Color,Urine Colorless (Yellow); Glucose,Urine (UA) Normal (Normal); Ketones,Urine Negative (Negative); Leukocyte Esterase,Urine Negative (Negative); Nitrite,Urine Negative (Negative); PH,Urine 7.5 pH Units (5.0-8.0); Protein,Urine Negative (Neg-Trace); Specific Gravity,Urine > 1.030 (1.010-1.025); Urobilinogen,Urine Normal (Normal)
[2021-03-06] MEDS ORDERED: E-Z-PAQUE (BARIUM SULF) SUSP 1 BOTTLE PO ONE (14:24)
[2021-03-06] MEDS ORDERED: E-Z-HD (BARIUM SULF) SUSPENSION PO ONE (14:24)
[2021-03-06 15:52] VITALS: BP 112/79
[2021-03-06] MEDS ORDERED: Ketorolac 15 MG/ML VIAL IVP ONE (17:25)
[2021-03-07] MEDS ORDERED: Venlafaxine XR (24 HR) 150 MG CAP.ER.24H PO SCH (09:00)
[2021-03-07] MEDS ORDERED: Aspirin Enteric Coated 81 MG Tablet PO SCH (09:00)
== END 2021-03-06 18:57 | disposition home or self-care (01) ==
LOC: 3BNU 08:04 → EMEROOARM 08:04 → 3BNU 11:35
PROVIDERS: ADMIT Internal Medicine; ATTEND Internal Medicine

== ENCOUNTER 2021-05-20 10:02 | Observation (INO) ==
[2021-05-20] MEDS ORDERED: Isovue-370 500 ML BOTTLE IVP ONE (10:15)
[2021-05-20 10:24] LABS: Hematocrit 47.2 % (35.3-44.9); Mean Corpuscular HGB Conc 31.8 g/dL (31.6-35.5); Mean Corpuscular Hemoglobin 27.4 pg (28.0-33.3); Mean Corpuscular Volume 86.1 fL (83.0-100.0); Mean Platelet Volume 9.7 fL (9.4-12.4); Platelet Count 307 K/mcL (140-400); Red Blood Count 5.48 M/mcL (3.82-4.97); Red Cell Distribution Width 13.5 % (11.5-14.5); White Blood Count 8.7 K/mcL (4.3-11.1)
[2021-05-20 10:32] LABS: INR 1.1; Prothrombin Time 12.9 Seconds (9.4-12.1)
[2021-05-20 10:34] LABS: Activated Partial Thrombo Time 32.4 Seconds (26.0-36.0)
[2021-05-20 10:41] LABS: BUN/Creatinine Ratio 10 (6-26); Blood Urea Nitrogen 9 mg/dL (6-20); Calcium 9.4 mg/dL (8.6-10.3); Carbon Dioxide 26 mEq/L (23-29); Chloride 104 mEq/L (98-107); Glucose 95 mg/dL (70-105); Osmolality,Calculated 288 (280-300); Potassium 3.6 mEq/L (3.5-5.1); Sodium 140 mEq/L (136-145); eGFR For African Americans > 60 (> 60); eGFR For Non-African Americans > 60 (> 60)
[2021-05-20 10:42] LABS: Troponin I < 0.03 ng/mL (< 0.04)
[2021-05-20] MEDS ORDERED: Naloxone 0.4 MG/ML INJ IVP PRN (12:00)
[2021-05-20] MEDS ORDERED: Ketorolac 15 MG/ML VIAL IVP ONE (12:09)
[2021-05-20 13:30] VITALS: BP 116/76; PULSE 68; TEMP 98.1; O2SAT 98
[2021-05-21] MEDS ORDERED: Venlafaxine XR (24 HR) 150 MG CAP.ER.24H PO SCH (09:00)
== END 2021-05-20 14:18 | disposition left against medical advice (07) ==
LOC: 3BNU 10:02 → EMEROOARM 10:02 → 3BNU 13:08
PROVIDERS: ADMIT Internal Medicine; ATTEND Internal Medicine

== ENCOUNTER 2021-07-01 11:23 | Observation (INO) ==
[2021-07-01] MEDS ORDERED: Ondansetron ODT 4 MG TAB.RAPDIS SL PRN (12:52)
[2021-07-01] MEDS ORDERED: Naloxone 0.4 MG/ML INJ IVP PRN (12:52)
[2021-07-01] MEDS ORDERED: Acetaminophen 325 MG TABLET PO PRN (12:53)
[2021-07-01] MEDS ORDERED: *HR* HYDROcodone/Acet 5/325 mg TABLET PO PRN (12:53)
[2021-07-01] MEDS ORDERED: Isovue-370 500 ML BOTTLE IVP ONE (13:57)
[2021-07-01 14:04] LABS: Basophils % 0.5 %; Eosinophils % 0.6 %; Hematocrit 43.6 % (35.3-44.9); Hemoglobin 14.7 g/dL (11.5-15.4); Immature Granulocytes % 0.2 % (0-4); Lymphocytes # 1.8 K/mcL (0.6-4.6); Lymphocytes % 26.5 %; Mean Corpuscular HGB Conc 33.7 g/dL (31.6-35.5); Mean Corpuscular Hemoglobin 28.7 pg (28.0-33.3); Monocytes # 0.4 K/mcL (0.0-1.3); Neutrophils # 4.4 K/mcL (1.6-8.9); Platelet Count 238 K/mcL (140-400); Red Blood Count 5.13 M/mcL (3.82-4.97); Red Cell Distribution Width 13.6 % (11.5-14.5); Segmented Neutrophils % 66.2 %; White Blood Count 6.6 K/mcL (4.3-11.1)
[2021-07-01 14:18] LABS: Alanine Aminotransferase 151 Units/L (7-52); Albumin 4.6 g/dL (3.5-5.7); Alkaline Phosphatase 104 Units/L (34-104); Aspartate Amino Transferase 116 Units/L (13-39); BUN/Creatinine Ratio 13 (6-26); Bilirubin,Total 0.3 mg/dL (0.3-1.0); Blood Urea Nitrogen 10 mg/dL (6-20); Carbon Dioxide 25 mEq/L (23-29); Chloride 107 mEq/L (98-107); Globulin 2.3 g/dL (2.4-3.5); Glucose 88 mg/dL (70-105); Osmolality,Calculated 286 (280-300); Potassium 4.3 mEq/L (3.5-5.1); Sodium 139 mEq/L (136-145); Total Protein 6.9 g/dL (6.4-8.9); eGFR For African Americans > 60 (> 60); eGFR For Non-African Americans > 60 (> 60)
[2021-07-01 14:28] LABS: INR 1.1; Prothrombin Time 12.6 Seconds (9.4-12.1)
[2021-07-01 14:57] LABS: Calcium 9.9 mg/dL (8.6-10.3)
[2021-07-01 15:41] LABS: Acetaminophen < 10 mcg/mL (10-20); Ethanol < 10 mg/dL (Less than 10)
[2021-07-01] MEDS: 0.9 % Sodium Chloride 1,000 ML IVC SCH (15:41)
[2021-07-01] MEDS ORDERED: Ketorolac 15 MG/ML VIAL IVP ONE (15:53)
[2021-07-01 16:37] LABS: Hepatitis B Core IgM Nonreactive (Nonreactive)
[2021-07-01 16:38] LABS: Hepatitis A Antibody IgM Nonreactive (Nonreactive); Hepatitis C Virus Antibody Nonreactive (Nonreactive)
[2021-07-01 16:49] LABS: Hepatitis B Surface Antigen Nonreactive (Nonreactive)
[2021-07-01] MEDS: Piperacillin/Tazobactam 3.375 GM in 0.9 % Sodium Chloride Mini Bag 100 ML IVPB SCH ×2 (17:26→23:59)
[2021-07-01] MEDS: *HR* Heparin 5,000 UNIT/ML VIAL SQ SCH ×2 (20:19→20:49)
[2021-07-01] MEDS ORDERED: Topiramate 25 MG TABLET PO SCH (21:00)
[2021-07-01] MEDS ORDERED: Piperacillin/Tazobactam 3.375 GM VIAL ONE (23:52)
[2021-07-02] MEDS ORDERED: Ketorolac 15 MG/ML VIAL IVP ONE (00:32)
[2021-07-02] MEDS ORDERED: Morphine Sulfate 2 MG/ML SYRINGE IVP ONE (01:14)
[2021-07-02 03:51] VITALS: O2SAT 99
[2021-07-02] MEDS: 0.9 % Sodium Chloride 1,000 ML IVC SCH (05:37)
[2021-07-02] MEDS: *HR* Heparin 5,000 UNIT/ML VIAL SQ SCH ×2 (05:37→16:02)
[2021-07-02 07:10] LABS: Basophils % 0.5 %; Eosinophils # 0.1 K/mcL (0.0-0.6); Eosinophils % 1.3 %; Hematocrit 39.4 % (35.3-44.9); Immature Granulocytes % 0.2 % (0-4); Lymphocytes # 1.8 K/mcL (0.6-4.6); Lymphocytes % 32.5 %; Mean Corpuscular Hemoglobin 28.4 pg (28.0-33.3); Mean Platelet Volume 10.1 fL (9.4-12.4); Monocytes # 0.5 K/mcL (0.0-1.3); Neutrophils # 3.1 K/mcL (1.6-8.9); Platelet Count 205 K/mcL (140-400); Red Blood Count 4.58 M/mcL (3.82-4.97); Red Cell Distribution Width 13.6 % (11.5-14.5); Segmented Neutrophils % 56.5 %; White Blood Count 5.5 K/mcL (4.3-11.1)
[2021-07-02] MEDS ORDERED: Venlafaxine XR (24 HR) 75 MG CAP.ER.24H PO SCH (09:00)
[2021-07-02] MEDS: Piperacillin/Tazobactam 3.375 GM in 0.9 % Sodium Chloride Mini Bag 100 ML IVPB SCH ×2 (09:27→17:02)
[2021-07-02 09:44] LABS: Alanine Aminotransferase 188 Units/L (7-52); Albumin 3.9 g/dL (3.5-5.7); Albumin/Globulin Ratio 2.1 (1.1-2.2); Alkaline Phosphatase 89 Units/L (34-104); Aspartate Amino Transferase 112 Units/L (13-39); BUN/Creatinine Ratio 14 (6-26); Bilirubin,Total 0.3 mg/dL (0.3-1.0); Blood Urea Nitrogen 12 mg/dL (6-20); Calcium 8.6 mg/dL (8.6-10.3); Carbon Dioxide 24 mEq/L (23-29); Chloride 110 mEq/L (98-107); Globulin 1.9 g/dL (2.4-3.5); Glucose 91 mg/dL (70-105); Osmolality,Calculated 287 (280-300); Potassium 3.9 mEq/L (3.5-5.1); Sodium 139 mEq/L (136-145); Total Protein 5.8 g/dL (6.4-8.9); eGFR For African Americans > 60 (> 60); eGFR For Non-African Americans > 60 (> 60)
[2021-07-02 15:38] VITALS: BP 117/82; PULSE 74; TEMP 97.7
[2021-07-05 14:36] LABS: ANA IgG by ELISA NONE DETECTED (None Detected)
[2021-07-05 14:54] LABS: Saccharomyces cerevisiae IgA 18.4 Units (0.0-24.9)
[2021-07-05 14:55] LABS: F-Actin (sm muscle) Ab IgG 5 Units (0-19)
== END 2021-07-02 18:10 | disposition home or self-care (01) ==
LOC: 3ANU → SUATTDRO 12:08
PROVIDERS: ADMIT Student in an Organized Health Care Education/Training Program; ATTEND Internal Medicine